=== PATIENT | female | born 2000 | race Caucasian/White ===

== ENCOUNTER 2021-05-16 02:15 | Emergency (ER) | payer MEDICAID ==
[~2021-05-16] VITALS: Ht 154.9 cm; Wt 58.5 kg
--- NOTE | 2021-05-16 02:30 | NUR ---
PRESENTED TO THE ER FOR EVALUATION OF PERNEAL CYST
[2021-05-16] MEDS ORDERED: LIDOCAINE 1%-EPI 1:100,000 20 ML VIAL ONE (02:49)
[2021-05-16] MEDS ORDERED: LIDOCAINE 1%-EPI 1:100,000 20 ML VIAL TP ONE (03:00)
--- NOTE | 2021-05-16 03:00 | NUR ---
DR WASHINGTON AT BED SIDE FOR I&D
[2021-05-16] MEDS ORDERED: CEPH250C PO (03:37)
[2021-05-16 03:50] VITALS: BP 111/68
--- NOTE | 2021-05-16 03:50 | NUR ---
PT IS MEDICALLY STABLE FOR D/C. Patient discharged to home in stable condition. Rx and Written and verbal after care instructions given. Patient verbalizes understanding of instruction.
== END 2021-05-16 03:51 | disposition home or self-care (01) ==
LOC: ER 02:22
DX: L72.8 Other follicular cysts of the skin and subcutaneous tissue (principal); L02.92 Furuncle, unspecified
CPT/HCPCS: 10060; 99283; J3490